=== PATIENT | male | born 1970 | race American Indian/Alaskan Native ===

== ENCOUNTER 2017-11-13 08:07 | Emergency (ER) | payer MEDICAID ==
[2017-11-13] MEDS ORDERED: D50W (25GM) Syringe IV ONE ×2 (08:17→09:39)
[2017-11-13 09:02] LABS: Basophils # (Auto) 0.1 K/mm3 (0.0-0.1); Basophils % (Auto) 0.7 % (0.0-1.8); Eosinophils % (Auto) 0.3 % (0.0-4.3); Hematocrit 38.6 % (35.5-45.6); Hemoglobin 12.7 gm/dl (11.8-15.2); Lymphocytes % (Auto) 8.3 % (13.4-35.0); Mean Corpuscular HGB Conc 33 % (32-34); Mean Corpuscular Hemoglobin 29 pg (28-32); Mean Corpuscular Volume 90 fl (84-94); Monocytes # (Auto) 0.6 K/mm3 (0.0-0.8); Monocytes % (Auto) 5.2 % (0.0-7.3); Platelet Count 206 K/mm3 (140-440); Red Blood Count 4.31 M/mm3 (3.65-5.03); Red Cell Distribution Width 14.1 % (13.2-15.2)
[2017-11-13 09:14] LABS: Calcium 8.5 mg/dL (8.4-10.2)
--- NOTE | 2017-11-13 12:18 | Emergency Department Report ---
ED General Adult HPI - General Chief complaint: Hypoglycemia Stated complaint: UNRESPONSIVE/DIABETIC Time Seen by Provider: 11/13/17 08:23 Source: EMS Mode of arrival: Stretcher Limitations: Altered Mental Status - History of Present Illness Initial comments: Patient is a 47-year-old male who is presenting status post hypoglycemic episode. Patient is a insulin-dependent diabetic states he took his insulin last night before going to bed and had cooked but did not eat. Patient was checked on him this morning by his son who found him unresponsive. Accu-Chek per EMS read low. Patient is unable to give any additional history at this time. Severity scale (0 -10): 0 - Related Data Allergies Allergy/AdvReac Type Severity Reaction Status Date / Time No Known Allergies Allergy Verified 11/13/17 08:22 ED Review of Systems ROS: Stated complaint: UNRESPONSIVE/DIABETIC Other details as noted in HPI Comment: Unobtainable due to pts medical conditions ED Past Medical Hx - Past Medical History Previous Medical History?: Yes Hx Diabetes: Yes - Social History Smoking Status: Current Every Day Smoker Substance Use Type: None ED Physical Exam - General Limitations: Altered Mental Status General appearance: lethargic, other (nonverbal but does have his eyes open) - Head Head exam: Present: atraumatic, normocephalic - Eye Eye exam: Present: normal appearance - ENT ENT exam: Present: mucous membranes moist - Neck Neck exam: Present: normal inspection - Respiratory Respiratory exam: Present: normal lung sounds bilaterally. Absent: respiratory distress, wheezes, rales, rhonchi, stridor - Cardiovascular Cardiovascular Exam: Present: regular rate, normal rhythm. Absent: systolic murmur, diastolic murmur, rubs, gallop - GI/Abdominal GI/Abdominal exam: Present: soft, normal bowel sounds. Absent: distended, tenderness, guarding, rebound - Rectal Rectal exam: Present: deferred - Extremities Exam Extremities exam: Present: normal inspection - Back Exam Back exam: Present: normal inspection - Neurological Exam Neurological exam: Present: alert - Psychiatric Psychiatric exam: Present: normal affect, normal mood - Skin Skin exam: Present: warm, dry, intact, normal color. Absent: rash ED Course Vital Signs 11/13/17 11/13/17 11/13/17 08:13 08:17 08:23 Temperature 97.7 F Pulse Rate 66 69 76 Respiratory 17 20 Rate Blood Pressure Blood Pressure 165/100 [Left] O2 Sat by Pulse 100 100 100 Oximetry 11/13/17 11/13/17 11/13/17 08:24 08:31 09:00 Temperature Pulse Rate 64 59 L Respiratory 20 14 13 Rate Blood Pressure 145/89 145/88 Blood Pressure [Left] O2 Sat by Pulse 99 100 Oximetry 11/13/17 11/13/17 11/13/17 09:31 10:01 10:30 Temperature Pulse Rate 65 67 70 Respiratory 15 14 15 Rate Blood Pressure 149/78 125/74 124/74 Blood Pressure [Left] O2 Sat by Pulse 100 99 99 Oximetry 11/13/17 11/13/17 13:15 13:25 Temperature 98.5 F Pulse Rate 69 Respiratory 16 Rate Blood Pressure 159/95 Blood Pressure [Left] O2 Sat by Pulse 100 Oximetry ED Medical Decision Making - Lab Data Result diagrams: 11/13/17 08:43 11/13/17 08:43 - Medical Decision Making Accu-Chek was low here in the emergency Department line was established here by nursing staff patient was given D50 and did return back to his baseline. The patient was given something to eat and his blood sugar was monitored several more times and emergency Department be discharged home. Critical care attestation.: If time is entered above; I have spent that time in minutes in the direct care of this critically ill patient, excluding procedure time. ED Disposition Clinical Impression: Hyperglycemia Disposition: DC-01 TO HOME OR SELFCARE Is pt being admited?: No Does the pt Need Aspirin: No Condition: Fair Instructions: Diabetic Hypoglycemia (ED) Referrals: JIN LECHUGA III, PRINCIPAL PROCESS ENGINEER-BC [Primary Care Provider] - 3-5 Days
[2017-11-13 12:47] LABS: Bilirubin,Urine NEG (Negative); Blood,Urine MOD (Negative); Color,Urine Yellow (Yellow); Nitrite,Urine NEG (Negative); Urobilinogen,Urine < 2.0 mg/dL (<2.0); WBC,Urine < 1.0 /HPF (0.0-6.0)
[2017-11-13 13:25] VITALS: BP 159/95
== END 2017-11-13 13:33 | disposition home or self-care (01) ==
LOC: ED 08:07
DX: E11.65 Type 2 diabetes mellitus with hyperglycemia (principal); F17.200 Nicotine dependence, unspecified, uncomplicated
CPT/HCPCS: 36415; 80048; 81001; 82962; 85025; 93005; 93010; 96374

== ENCOUNTER 2017-11-14 13:50 | Emergency (ER) | payer MEDICAID ==
[2017-11-14 16:02] VITALS: BP 142/82
== END 2017-11-14 16:05 | disposition left against medical advice (07) ==
LOC: ED 13:50
DX: Z53.21 Procedure and treatment not carried out due to patient leaving prior to being seen by health care provider (principal)
CPT/HCPCS: 82962

== ENCOUNTER 2018-05-19 05:01 | Emergency (ER) | payer MEDICAID ==
[2018-05-19 05:43] VITALS: BP 127/77
[2018-05-19 06:06] LABS: Basophils # (Auto) 0.1 K/mm3 (0.0-0.1); Eosinophils # (Auto) 0.1 K/mm3 (0.0-0.4); Eosinophils % (Auto) 0.9 % (0.0-4.3); Hematocrit 35.6 % (35.5-45.6); Hemoglobin 11.8 gm/dl (11.8-15.2); Lymphocytes % (Auto) 19.9 % (13.4-35.0); Mean Corpuscular HGB Conc 33 % (32-34); Mean Corpuscular Hemoglobin 30 pg (28-32); Mean Corpuscular Volume 89 fl (84-94); Monocytes # (Auto) 0.7 K/mm3 (0.0-0.8); Monocytes % (Auto) 6.7 % (0.0-7.3); Platelet Count 277 K/mm3 (140-440); Red Blood Count 3.98 M/mm3 (3.65-5.03); Red Cell Distribution Width 13.8 % (13.2-15.2)
[2018-05-19 06:23] LABS: Calcium 8.6 mg/dL (8.4-10.2)
[2018-05-19] MEDS ORDERED: NACL 0.9% 1000 ML 1,000 ML IV ONE (06:29)
--- NOTE | 2018-05-19 06:30 | Emergency Department Report ---
ED General Adult HPI - General Chief complaint: Hypoglycemia Stated complaint: LOW BLOOD GLUCOSE Time Seen by Provider: 05/19/18 06:05 Source: patient, EMS Mode of arrival: Stretcher Limitations: No Limitations - History of Present Illness Initial comments: Patient is a 47-year-old male presents to emergency room with complaints of hypoglycemia. Patient states that his spouse woke him up due to him shaking while sleeping. Patient stated he was diaphoretic. Patient states his blood sugar with EMS was 43. Patient states that he did not eat after taking his evening injection of insulin. Patient denies chest pain shortness of breath. Patient denies abdominal pain. Patient denies all other physical complaints. MD Complaint: hypoglycemia -: Sudden Consistency: now resolved Improves with: eating Worsens with: medication Associated Symptoms: confusion, diaphoresis. denies: chest pain, cough, fever/ chills, headaches, loss of appetite, nausea/vomiting, rash, seizure, shortness of breath, syncope Treatments Prior to Arrival: other (d50) - Related Data Home Medications Medication Instructions Recorded Confirmed Last Taken Lisinopril 10 mg PO DAILY 05/19/18 05/19/18 Unknown NovoLOG 100 UNITS/ML VIAL units SQ AC PRN 05/19/18 Unknown amLODIPine 10 units SQ DAILY 05/19/18 05/19/18 Unknown Allergies Allergy/AdvReac Type Severity Reaction Status Date / Time No Known Allergies Allergy Verified 11/13/17 08:22 ED Review of Systems ROS: Stated complaint: LOW BLOOD GLUCOSE Other details as noted in HPI Constitutional: denies: chills, fever Eyes: denies: eye pain, eye discharge, vision change ENT: denies: ear pain, throat pain Respiratory: denies: cough, shortness of breath, wheezing Cardiovascular: denies: chest pain, palpitations Endocrine: no symptoms reported Gastrointestinal: denies: abdominal pain, nausea, diarrhea Genitourinary: denies: urgency, dysuria Musculoskeletal: denies: back pain, joint swelling, arthralgia Skin: denies: rash, lesions Neurological: denies: headache, weakness, paresthesias Psychiatric: denies: anxiety, depression Hematological/Lymphatic: denies: easy bleeding, easy bruising ED Past Medical Hx - Past Medical History Previous Medical History?: Yes Hx Hypertension: Yes Hx Diabetes: Yes Hx Renal Disease: Yes (per patient baseline creatinine is 2.8-3.2) - Surgical History Past Surgical History?: No - Family History Family history: hypertension - Social History Smoking Status: Never Smoker Substance Use Type: None - Medications Home Medications: Home Medications Medication Instructions Recorded Confirmed Last Taken Type Lisinopril 10 mg PO DAILY 05/19/18 05/19/18 Unknown History NovoLOG 100 UNITS/ML VIAL units SQ AC PRN 05/19/18 Unknown History amLODIPine 10 units SQ DAILY 05/19/18 05/19/18 Unknown History ED Physical Exam - General Limitations: No Limitations General appearance: alert, in no apparent distress - Head Head exam: Present: atraumatic, normocephalic - Eye Eye exam: Present: normal appearance - ENT ENT exam: Present: mucous membranes moist - Neck Neck exam: Present: normal inspection - Respiratory Respiratory exam: Present: normal lung sounds bilaterally. Absent: respiratory distress - Cardiovascular Cardiovascular Exam: Present: regular rate, normal rhythm. Absent: systolic murmur, diastolic murmur, rubs, gallop - GI/Abdominal GI/Abdominal exam: Present: soft, normal bowel sounds. Absent: distended, tenderness, guarding, rebound - Rectal Rectal exam: Present: deferred - Extremities Exam Extremities exam: Present: normal inspection - Back Exam Back exam: Present: normal inspection, full ROM - Neurological Exam Neurological exam: Present: alert, oriented X3 - Psychiatric Psychiatric exam: Present: normal affect, normal mood - Skin Skin exam: Present: warm, dry, intact, normal color. Absent: rash ED Course Vital Signs 05/19/18 05/19/18 05:37 07:17 Temperature 98.2 F Pulse Rate 68 Respiratory 16 16 Rate Blood Pressure 127/77 O2 Sat by Pulse 100 100 Oximetry - Reevaluation(s) Reevaluation #1: Patient appears to be stable. Patient states he feels well. Discussed kidney function with patient. Patient states he is normally has an elevated creatinine of around 3. Patient states he is already seeing a hat finisher. We 'll recheck the patient's blood sugar and it normal will discharge patient home with strict ER instructions and follow-up instructions. Patient instructed G regularly. Patient instructed to continue all his medications and follow up with his primary care. 05/19/18 06:33 Reevaluation #2: Stressed all results with patient. Repeat glucose 297. Patient stable for discharge 05/19/18 07:48 ED Medical Decision Making - Lab Data Result diagrams: 05/19/18 05:54 05/19/18 05:54 - Medical Decision Making Patient is a 47-year-old male presents to [facility] with hypoglycemia dysemia secondary to missing his meals after injecting insulin. Patient is stable for discharge. Patient given all discharge instructions. Patient given strict return to ER instructions. Patient encouraged to eat small regular meals and continue all vacations as directed. Patient encouraged to follow up with primary care, keg washer, and hat finisher as soon as possible - Differential Diagnosis hypoglycemia, missed meal, insufficient caloric intake for insulin dose. Critical care attestation.: If time is entered above; I have spent that time in minutes in the direct care of this critically ill patient, excluding procedure time. ED Disposition Clinical Impression: Hypoglycemia associated with type 2 diabetes mellitus Chronic kidney disease (CKD) Qualifiers: Chronic kidney disease stage: unspecified stage Qualified Code(s): N18.9 - Chronic kidney disease, unspecified Disposition: - TO HOME OR SELFCARE Is pt being admited?: No Does the pt Need Aspirin: No Condition: Stable Instructions: Diabetes Mellitus Type 2 in Adults (ED) Additional Instructions: Patient to follow up with primary care in 3-5 days. Patient to follow up with keg washer and hat finisher within 2-4 days. Patient to return to ER if condition worsens. Patient to increase water. Patient to take all prescription medications as previously prescribed. Referrals: PRIMARY CARE, [Primary Care Provider] - 3-5 Days Time of Disposition: 07:49
[2018-05-19] MEDS ORDERED: NACL 0.9% 1000 ML 1,000 ML ONE (07:22)
== END 2018-05-19 09:00 | disposition home or self-care (01) ==
LOC: ED 05:01
DX: E11.649 Type 2 diabetes mellitus with hypoglycemia without coma (principal); E11.22 Type 2 diabetes mellitus with diabetic chronic kidney disease; I12.9 Hypertensive chronic kidney disease with stage 1 through stage 4 chronic kidney disease, or unspecified chronic kidney disease; N18.9 Chronic kidney disease, unspecified
CPT/HCPCS: 36415; 80048; 82962; 85025; 96360; 99284; J7030

== ENCOUNTER 2018-11-19 03:10 | Emergency (ER) | payer MEDICAID ==
[2018-11-19] MEDS ORDERED: D50W (25GM) Syringe IV ONE ×2 (03:16→05:20)
[2018-11-19] MEDS ORDERED: D50W (25GM) Vial IV ONE ×2 (03:30→03:50)
--- NOTE | 2018-11-19 03:51 | Emergency Department Report ---
ED General Adult HPI - General Chief complaint: Hypoglycemia Stated complaint: LOW SUGAR Time Seen by Provider: 11/19/18 03:27 Source: EMS Mode of arrival: Stretcher Limitations: Altered Mental Status - History of Present Illness Initial comments: Patient is a 48-year-old [place] male who has diabetes and is insulin- dependent, presented with hypoglycemia. Patient was noted to be altered at home. Patient states he took his insulin but he didn't eat very much for his last meal. Patient states is just very cold at this time. Patient had just received D50 at the time of our interview. Patient denies any nausea vomiting diarrhea headache fevers or chills. - Related Data Home Medications Medication Instructions Recorded Confirmed Last Taken Lisinopril 10 mg PO DAILY 05/19/18 05/19/18 Unknown NovoLOG 100 UNITS/ML VIAL units SQ AC PRN 05/19/18 Unknown amLODIPine 10 units SQ DAILY 05/19/18 05/19/18 Unknown Allergies Allergy/AdvReac Type Severity Reaction Status Date / Time No Known Allergies Allergy Verified 11/13/17 08:22 ED Review of Systems ROS: Stated complaint: LOW SUGAR Other details as noted in HPI Comment: All other systems reviewed and negative ED Past Medical Hx - Past Medical History Previous Medical History?: Yes Hx Hypertension: Yes Hx Diabetes: Yes Hx Renal Disease: Yes (per patient baseline creatinine is 2.8-3.2) - Surgical History Past Surgical History?: Yes - Social History Smoking Status: Never Smoker Substance Use Type: None - Medications Home Medications: Home Medications Medication Instructions Recorded Confirmed Last Taken Type Lisinopril 10 mg PO DAILY 05/19/18 05/19/18 Unknown History NovoLOG 100 UNITS/ML VIAL units SQ AC PRN 05/19/18 Unknown History amLODIPine 10 units SQ DAILY 05/19/18 05/19/18 Unknown History ED Physical Exam - General Limitations: Altered Mental Status General appearance: alert, in no apparent distress - Head Head exam: Present: atraumatic, normocephalic - Eye Eye exam: Present: normal appearance - ENT ENT exam: Present: mucous membranes moist - Neck Neck exam: Present: normal inspection - Respiratory Respiratory exam: Present: normal lung sounds bilaterally. Absent: respiratory distress, wheezes, rales, rhonchi - Cardiovascular Cardiovascular Exam: Present: regular rate, normal rhythm, normal heart sounds. Absent: systolic murmur, diastolic murmur, rubs, gallop - GI/Abdominal GI/Abdominal exam: Present: soft, normal bowel sounds. Absent: distended, ten derness, guarding, rebound - Rectal Rectal exam: Present: deferred - Extremities Exam Extremities exam: Present: normal inspection - Back Exam Back exam: Present: normal inspection - Neurological Exam Neurological exam: Present: alert, oriented X3 - Psychiatric Psychiatric exam: Present: normal affect, normal mood - Skin Skin exam: Present: warm, dry, intact, normal color. Absent: rash ED Course Vital Signs 11/19/18 11/19/18 11/19/18 03:24 03:30 04:00 Temperature 97.7 F Pulse Rate 103 H 77 Respiratory 18 18 13 Rate Blood Pressure 161/101 174/109 O2 Sat by Pulse 100 100 99 Oximetry 11/19/18 05:00 Temperature Pulse Rate 69 Respiratory 13 Rate Blood Pressure 148/85 O2 Sat by Pulse 100 Oximetry ED Medical Decision Making - Lab Data Result diagrams: 11/19/18 03:37 Lab Results 11/19/18 11/19/18 11/19/18 Range/Units 03:23 03:37 05:11 WBC 7.5 (4.5-11.0) K/mm3 RBC 3.90 (3.65-5.03) M/mm3 Hgb 11.5 L (11.8-15.2) gm/dl Hct 35.0 L (35.5-45.6) % MCV 90 (84-94) fl MCH 30 (28-32) pg MCHC 33 (32-34) % RDW 15.0 (13.2-15.2) % Plt Count 228 (140-440) K/mm3 Lymph % (Auto) 11.4 L (13.4-35.0) % [place] % (Auto) 4.7 (0.0-7.3) % Eos % (Auto) 0.5 (0.0-4.3) % Baso % (Auto) 1.1 (0.0-1.8) % Lymph # 0.9 L (1.2-5.4) K/mm3 [place] # 0.3 (0.0-0.8) K/mm3 Eos # 0.0 (0.0-0.4) K/mm3 Baso # 0.1 (0.0-0.1) K/mm3 Seg Neutrophils % 82.3 H (40.0-70.0) % Seg Neutrophils # 6.1 (1.8-7.7) K/mm3 POC Glucose 210 H 252 H (70-105) - Medical Decision Making Patient was monitored and his glucose level and did not drop again. Patient be discharged home. Critical care attestation.: If time is entered above; I have spent that time in minutes in the direct care of this critically ill patient, excluding procedure time. ED Disposition Clinical Impression: Hypoglycemia Insulin adverse reaction Qualifiers: Encounter type: initial encounter Qualified Code(s): T38.3X5A - Adverse effect of insulin and oral hypoglycemic [antidiabetic] drugs, initial encounter Disposition: DC-01 TO HOME OR SELFCARE Is pt being admited?: No Does the pt Need Aspirin: No Condition: Stable Instructions: Diabetic Hypoglycemia (ED) Time of Disposition: 05:31
[2018-11-19 04:05] LABS: Basophils # (Auto) 0.1 K/mm3 (0.0-0.1); Basophils % (Auto) 1.1 % (0.0-1.8); Eosinophils % (Auto) 0.5 % (0.0-4.3); Hemoglobin 11.5 gm/dl (11.8-15.2); Lymphocytes # (Auto) 0.9 K/mm3 (1.2-5.4); Lymphocytes % (Auto) 11.4 % (13.4-35.0); Mean Corpuscular HGB Conc 33 % (32-34); Mean Corpuscular Volume 90 fl (84-94); Monocytes # (Auto) 0.3 K/mm3 (0.0-0.8); Monocytes % (Auto) 4.7 % (0.0-7.3); Platelet Count 228 K/mm3 (140-440)
[2018-11-19 06:10] VITALS: BP 166/99
[2018-11-19 06:26] LABS: Calcium 8.6 mg/dL (8.4-10.2)
== END 2018-11-19 06:14 | disposition home or self-care (01) ==
LOC: ED 03:10
DX: E11.649 Type 2 diabetes mellitus with hypoglycemia without coma (principal); T38.3X5A Adverse effect of insulin and oral hypoglycemic [antidiabetic] drugs, initial encounter; I10 Essential (primary) hypertension; Z79.4 Long term (current) use of insulin; X58.XXXA Exposure to other specified factors, initial encounter; Y93.89 Activity, other specified; Y92.89 Other specified places as the place of occurrence of the external cause; Y99.8 Other external cause status
CPT/HCPCS: 36415; 80048; 82962; 85025; 96374

== ENCOUNTER 2019-02-12 23:56 | Inpatient (IN) | payer MEDICAID ==
--- NOTE | 2019-02-13 00:34 | Emergency Department Report ---
ED General Adult HPI - General Chief complaint: Hypoglycemia Stated complaint: HYPOGLYCEMIA Time Seen by Provider: 02/13/19 00:10 Source: patient, EMS Mode of arrival: Stretcher Limitations: No Limitations - History of Present Illness Initial comments: 48-year-old male with a history of insulin-dependent diabetes, hypertension, and chronic renal insufficiency presents to the hospital with complaints of hypoglycemia. Patient does not think he ate enough today and he has had a more physical activity than usual because he was participating in a zoroastrianism-related activity at a local park. Patient typically takes Lantus 20 units twice a day and regular insulin sliding scale of 2 units as needed persistent hyperglycemia. Patient states around 4:30 PM his glucose is 318 so he took 1 unit of regular insulin. They then walked to the park. At 7 PM patient took his scheduled Lantus and by 8p his sugar was in the 40s. Patient did eat very little today and ate additional food after a hypoglycemic reading however, upon recheck glucose dropped even further to 26. EMS gave D10 in route and glucose improved to 104. Patient medical record reviewed and patient has been here several times for hypoglycemic episodes. Patient denies current infectious symptoms, fever, cough, or dysuria. He is pain free. Skate Maker: Dr Rice - Related Data Home Medications Medication Instructions Recorded Confirmed Last Taken Lisinopril 10 mg PO DAILY 05/19/18 05/19/18 Unknown NovoLOG 100 UNITS/ML VIAL units SQ AC PRN 05/19/18 Unknown amLODIPine 10 units SQ DAILY 05/19/18 05/19/18 Unknown Allergies Allergy/AdvReac Type Severity Reaction Status Date / Time No Known Allergies Allergy Verified 11/13/17 08:22 ED Review of Systems ROS: Stated complaint: HYPOGLYCEMIA Other details as noted in HPI Comment: All other systems reviewed and negative ED Past Medical Hx - Past Medical History Previous Medical History?: Yes Hx Hypertension: Yes Hx Diabetes: Yes Hx Renal Disease: Yes (per patient baseline creatinine is 2.8-3.2) - Surgical History Past Surgical History?: No - Social History Smoking Status: Never Smoker Substance Use Type: None - Medications Home Medications: Home Medications Medication Instructions Recorded Confirmed Last Taken Type Lisinopril 10 mg PO DAILY 05/19/18 05/19/18 Unknown History NovoLOG 100 UNITS/ML VIAL units SQ AC PRN 05/19/18 Unknown History amLODIPine 10 units SQ DAILY 05/19/18 05/19/18 Unknown History ED Physical Exam - General Limitations: No Limitations - Other Other exam information: General: No limitations, patient is alert in no acute distress Head exam: Atraumatic, normocephalic Eyes exam: Normal appearance ENT: Moist mucous membrane Neck exam: Normal inspection, full range of motion, no meningismus nontender Respiratory exam: Clear to auscultation bilateral, no wheezes, rales, crackles Cardiovascular: Normal rate and rhythm, normal heart sounds Abdomen: Soft, nondistended, and nontender, with normal bowel sounds, no rebound, or guarding Extremity: Full range of motion normal inspection no deformity Back: Normal Inspection, full range of motion, no tenderness Neurologic: Alert, oriented x3, cranial nerves intact, no motor or sensory deficit Psychiatric: normal affect, normal mood Skin: Warm, dry, intact ED Course Vital Signs 02/13/19 02/13/19 02/13/19 02:51 04:25 04:34 Temperature 98.2 F Pulse Rate 72 73 73 Respiratory 16 20 Rate Blood Pressure 178/108 Blood Pressure 167/107 178/109 [Left] O2 Sat by Pulse 100 97 Oximetry - Consultations Consultation #1: 02/13/19 04:41 case d/w Dr Rice, he does state that he mentioned to pt with in the last 2 weeks that they need to start considering dialysis. Pt is adamant that he does not want dialysis. He requests that pt be admitted to the hospital for further tx ED Medical Decision Making - Lab Data Result diagrams: 02/13/19 00:20 02/13/19 00:20 Lab Results 02/13/19 02/13/19 02/13/19 Range/Units 00:19 00:20 00:20 WBC 8.4 (4.5-11.0) K/mm3 RBC 3.70 (3.65-5.03) M/mm3 Hgb 11.2 L (11.8-15.2) gm/dl Hct 33.6 L (35.5-45.6) % MCV 91 (84-94) fl MCH 30 (28-32) pg MCHC 33 (32-34) % RDW 14.2 (13.2-15.2) % Plt Count 230 (140-440) K/mm3 Lymph % (Auto) 30.1 (13.4-35.0) % [place] % (Auto) 9.5 H (0.0-7.3) % Eos % (Auto) 2.9 (0.0-4.3) % Baso % (Auto) Cane Feeder Lymph # 2.5 (1.2-5.4) K/mm3 [place] # 0.8 (0.0-0.8) K/mm3 Eos # 0.2 (0.0-0.4) K/mm3 Baso # 0.1 (0.0-0.1) K/mm3 Seg Neutrophils % 56.3 (40.0-70.0) % Seg Neutrophils # 4.7 (1.8-7.7) K/mm3 Sodium 140 (137-145) mmol/L Potassium 3.9 (3.6-5.0) mmol/L Chloride 106.5 (98-107) mmol/L Carbon Dioxide 20 L (22-30) mmol/L Anion Gap 17 mmol/L BUN 70 H (9-20) mg/dL Creatinine 5.7 H (0.8-1.5) mg/dL Estimated GFR 13 ml/min BUN/Creatinine Ratio 12 % Glucose 65 L (75-100) mg/dL POC Glucose 75 (70-105) Calcium 8.7 (8.4-10.2) mg/dL Urine Color (Yellow) Urine Turbidity (Clear) Urine pH (5.0-7.0) Ur Specific [place] (1.003-1.030) Urine Protein (Negative) mg/dL Urine Glucose (UA) (Negative) mg/dL Urine Ketones (Negative) mg/dL Urine Blood (Negative) Urine Nitrite (Negative) Urine Bilirubin (Negative) Urine Urobilinogen (<2.0) mg/dL Ur Leukocyte Esterase (Negative) Urine WBC (Auto) (0.0-6.0) /HPF Urine RBC (Auto) (0.0-6.0) /HPF U Epithel Cells (Auto) (0-13.0) /HPF Urine Mucus /HPF 02/13/19 02/13/19 02/13/19 Range/Units 00:35 03:12 04:32 WBC (4.5-11.0) K/mm3 RBC (3.65-5.03) M/mm3 Hgb (11.8-15.2) gm/dl Hct (35.5-45.6) % MCV (84-94) fl MCH (28-32) pg MCHC (32-34) % RDW (13.2-15.2) % Plt Count (140-440) K/mm3 Lymph % (Auto) (13.4-35.0) % [place] % (Auto) (0.0-7.3) % Eos % (Auto) (0.0-4.3) % Baso % (Auto) Lymph # (1.2-5.4) K/mm3 [place] # (0.0-0.8) K/mm3 Eos # (0.0-0.4) K/mm3 Baso # (0.0-0.1) K/mm3 Seg Neutrophils % (40.0-70.0) % Seg Neutrophils # (1.8-7.7) K/mm3 Sodium (137-145) mmol/L Potassium (3.6-5.0) mmol/L Chloride (98-107) mmol/L Carbon Dioxide (22-30) mmol/L Anion Gap mmol/L BUN (9-20) mg/dL Creatinine (0.8-1.5) mg/dL Estimated GFR ml/min BUN/Creatinine Ratio % Glucose (75-100) mg/dL POC Glucose 401 H 377 H (70-105) Calcium (8.4-10.2) mg/dL Urine Color Straw (Yellow) Urine Turbidity Clear (Clear) Urine pH 5.0 (5.0-7.0) Ur Specific [place] 1.010 (1.003-1.030) Urine Protein 100 mg/dl (Negative) mg/dL Urine Glucose (UA) 50 (Negative) mg/dL Urine Ketones Neg (Negative) mg/dL Urine Blood Mod (Negative) Urine Nitrite Neg (Negative) Urine Bilirubin Neg (Negative) Urine Urobilinogen < 2.0 (<2.0) mg/dL Ur Leukocyte Esterase Neg (Negative) Urine WBC (Auto) < 1.0 (0.0-6.0) /HPF Urine RBC (Auto) 3.0 (0.0-6.0) /HPF U Epithel Cells (Auto) < 1.0 (0-13.0) /HPF Urine Mucus Few /HPF - Medical Decision Making Patient has been a hospital ER for several hours while has been trying to normalize his glucose and values. Worsening kidney function could be secondary to dehydration given elevated BUN or could just be due to progressively worsening renal function. In the ED patient did initially receive something to eat and D5 half-normal was initiated. After receiving just over 500 mL of D5 half-normal his glucose increased to the 400s. Fluid was switched to normal saline. After 1 L of normal saline glucose dropped to the high 300s. Case is then discussed with Dr. jarvis regarding her worsening renal function. He states that he saw the patient 2 weeks ago recommended dialysis. Patient adamant that he does not want dialysis. Dr Rice recommends admission to the hospital for further treatment and evaluation. Pt also needs further stablization of his glucose and nephro eval. Clonidine given for htn - Differential Diagnosis fasting hypoglycemia, insulin reaction, infection Critical Care Time: No Critical care attestation.: If time is entered above; I have spent that time in minutes in the direct care of this critically ill patient, excluding procedure time. ED Disposition Clinical Impression: Hypoglycemia due to insulin, Acute on chronic renal failure, Uncontrolled hypertension Disposition: OP ADMIT IP TO THIS HOSP Is pt being admited?: Yes Condition: Stable Time of Disposition: 04:49 (Dr Yoder/hosp)
[2019-02-13 00:51] LABS: Basophils # (Auto) 0.1 K/mm3 (0.0-0.1); Eosinophils # (Auto) 0.2 K/mm3 (0.0-0.4); Eosinophils % (Auto) 2.9 % (0.0-4.3); Hematocrit 33.6 % (35.5-45.6); Hemoglobin 11.2 gm/dl (11.8-15.2); Lymphocytes # (Auto) 2.5 K/mm3 (1.2-5.4); Lymphocytes % (Auto) 30.1 % (13.4-35.0); Mean Corpuscular HGB Conc 33 % (32-34); Mean Corpuscular Volume 91 fl (84-94); Monocytes # (Auto) 0.8 K/mm3 (0.0-0.8); Monocytes % (Auto) 9.5 % (0.0-7.3); Platelet Count 230 K/mm3 (140-440); Red Cell Distribution Width 14.2 % (13.2-15.2)
[2019-02-13 00:53] LABS: Bilirubin,Urine NEG (Negative); Blood,Urine MOD (Negative); Color,Urine Straw (Yellow); Mucus,Urine FEW /HPF; Urobilinogen,Urine < 2.0 mg/dL (<2.0); WBC,Urine < 1.0 /HPF (0.0-6.0)
[2019-02-13 00:54] LABS: Calcium 8.7 mg/dL (8.4-10.2)
[2019-02-13] MEDS ORDERED: D5/0.45NS 1,000 ML IV SCH (02:00)
[2019-02-13] MEDS ORDERED: NACL 0.9% 1000 ML 1,000 ML IV ONE (03:23)
[2019-02-13] MEDS ORDERED: CATAPRES PO ONE (04:24)
[2019-02-13] MEDS ORDERED: ZOFRAN IV PRN (05:06)
[2019-02-13] MEDS ORDERED: AMBIEN PO PRN (05:06)
[2019-02-13] MEDS ORDERED: SODIUM CHLORIDE FLUSH SYRINGE 10 ML IV PRN (05:06)
[2019-02-13] MEDS ORDERED: TYLENOL PO PRN (05:06)
[2019-02-13] MEDS ORDERED: APRESOLINE IV PRN (05:12)
--- NOTE | 2019-02-13 05:22 | History and Physical Report ---
History of Present Illness Date of examination: 02/13/19 Chief complaint: Hypoglycemia History of present illness: 48-year-old male with a history of insulin-dependent diabetes, hypertension, and chronic renal insufficiency presents to the hospital with complaints of hypoglycemia. Patient does not think he ate enough today and he has had a more physical activity than usual because he was participating in a advent-related activity at a local park. Patient typically takes Lantus 20 units twice a day and regular insulin sliding scale of 2 units as needed persistent hyperglycemia. Patient states around 4:30 PM his glucose is 318 so he took 1 unit of regular insulin. They then walked to the park. At 7 PM patient took his scheduled Lantus and by 8p his sugar was in the 40s. Patient did eat very little today and ate additional food after a hypoglycemic reading however, upon recheck glucose dropped even further to 26. EMS gave D10 in route and glucose improved to 104. Patient medical record reviewed and patient has been here several times for hypoglycemic episodes. Patient denies current infectious symptoms, fever, cough, or dysuria. He is pain free. Tube Inspector: Dr Rice Previous Medical History?: Yes Hx Hypertension: Yes Hx Diabetes: Yes Hx Renal Disease: Yes (per patient baseline creatinine is 2.8-3.2) - Surgical History Past Surgical History?: No - Social History Smoking Status: Never Smoker Substance Use Type: None Medications and Allergies Allergies Allergy/AdvReac Type Severity Reaction Status Date / Time No Known Allergies Allergy Verified 11/13/17 08:22 Home Medications Medication Instructions Recorded Confirmed Last Taken Type Lisinopril 10 mg PO DAILY 05/19/18 05/19/18 Unknown History NovoLOG 100 UNITS/ML VIAL units SQ AC PRN 05/19/18 Unknown History amLODIPine 10 units SQ DAILY 05/19/18 05/19/18 Unknown History Active Meds: Active Medications Acetaminophen (Tylenol) 650 mg PO Q4H PRN PRN Reason: Pain MILD(1-3)/Fever >100.5/RO Dextrose (D50w (25gm) Syringe) 50 ml IV PRN PRN PRN Reason: Hypoglycemia Heparin Sodium (Porcine) (Heparin) 5,000 unit SUB-Q Q8HR MANGO Hydralazine HCl (Apresoline) 10 mg IV Q4HR PRN PRN Reason: Hypertension Dextrose/Sodium Chloride (D5/0.45ns) 1,000 mls @ 999 mls/hr IV DIRECT MANGO Last Admin: 02/13/19 02:04 Dose: 999 mls/hr Documented by: Sodium Chloride (Nacl 0.45% 1000 Ml) 1,000 mls @ 150 mls/hr IV DIRECT MANGO Insulin Glargine (Lantus) 15 units SUB-Q QHS MANGO Insulin Human Regular (Humulin R) 0 units SUB-Q ACHS MANGO; Protocol Miscellaneous Medication (Amlodipine) 10 units SQ DAILY MANGO Miscellaneous Medication (Lisinopril) 10 mg PO DAILY MANGO Ondansetron HCl (Zofran) 4 mg IV Q8H PRN PRN Reason: Nausea And Vomiting Sodium Chloride (Sodium Chloride Flush Syringe 10 Ml) 10 ml IV BID MANGO Sodium Chloride (Sodium Chloride Flush Syringe 10 Ml) 10 ml IV PRN PRN PRN Reason: LINE FLUSH Zolpidem Tartrate (Ambien) 5 mg PO QHS PRN PRN Reason: Insomnia Review of Systems All systems: negative (except as mentioned in HPI) Exam - Physical Exam Narrative exam: General: the patient is awake alert oriented to time place and person. no evide nce of acute distress HEENT: Head is atraumatic normocephalic,. Pupils equal round reactive to light and accommodation, extraocular movements intact. Oral mucosa moist. Oropharynx clear. No pharyngeal erythema or tonsillar exudate. Neck: Supple no JVD no thyromegaly or lymphadenopathy. Heart: Regular rate and rhythm no murmurs or gallops. S1 and S2 normal. PMI not displaced. Lungs: Clear to auscultation bilaterally. No rales rhonchi wheezing. Nonlabored breathing. Normal chest wall expansion. Abdomen: Soft, nondistended, and nontender. Normoactive bowel sounds. No hepatosplenomegaly. No abdominal masses or bruit appreciated. Extremities: No cyanosis/clubbing/ edema. Musculoskeletal: Normal range of movement all joints. No obvious deformity or tenderness to palpation. Normal muscle tone. Back: Normal alignment. No step-off. No midline or paraspinal tenderness. No CVA tenderness. Neurological: Grossly intact and nonfocal. No cerebellar signs. Cranial nerves II-12 grossly intact. Strength 5 out of 5 all 4 extremities. Sensations grossly intact. Skin: Warm and dry no rashes or bruises. Psychiatric: Normal mood. Appropriate affect and good insight and judgment. Vascular system: No lymphadenopathy. Distal pulses 2+ bilaterally. - Constitutional Vitals: Temp Pulse Resp BP Pulse Ox 98.2 F 73 20 178/108 97 02/13/19 04:25 02/13/19 04:34 02/13/19 04:25 02/13/19 04:34 02/13/19 04:25 Results - Labs CBC & Chem 7: 02/13/19 00:20 02/13/19 00:20 Labs: Laboratory Last Values WBC 8.4 K/mm3 (4.5-11.0) 02/13/19 00:20 RBC 3.70 M/mm3 (3.65-5.03) 02/13/19 00:20 Hgb 11.2 gm/dl (11.8-15.2) L 02/13/19 00:20 Hct 33.6 % (35.5-45.6) L 02/13/19 00:20 MCV 91 fl (84-94) 02/13/19 00:20 MCH 30 pg (28-32) 02/13/19 00:20 MCHC 33 % (32-34) 02/13/19 00:20 RDW 14.2 % (13.2-15.2) 02/13/19 00:20 Plt Count 230 K/mm3 (140-440) 02/13/19 00:20 Lymph % (Auto) 30.1 % (13.4-35.0) 02/13/19 00:20 [place] % (Auto) 9.5 % (0.0-7.3) H 02/13/19 00:20 Eos % (Auto) 2.9 % (0.0-4.3) 02/13/19 00:20 Baso % (Auto) Implementation Engineer 02/13/19 00:20 Lymph # 2.5 K/mm3 (1.2-5.4) 02/13/19 00:20 [place] # 0.8 K/mm3 (0.0-0.8) 02/13/19 00:20 Eos # 0.2 K/mm3 (0.0-0.4) 02/13/19 00:20 Baso # 0.1 K/mm3 (0.0-0.1) 02/13/19 00:20 Seg Neutrophils % 56.3 % (40.0-70.0) 02/13/19 00:20 Seg Neutrophils # 4.7 K/mm3 (1.8-7.7) 02/13/19 00:20 Sodium 140 mmol/L (137-145) 02/13/19 00:20 Potassium 3.9 mmol/L (3.6-5.0) 02/13/19 00:20 Chloride 106.5 mmol/L (98-107) 02/13/19 00:20 Carbon Dioxide 20 mmol/L (22-30) L 02/13/19 00:20 Anion Gap 17 mmol/L 02/13/19 00:20 BUN 70 mg/dL (9-20) H 02/13/19 00:20 Creatinine 5.7 mg/dL (0.8-1.5) H 02/13/19 00:20 Estimated GFR 13 ml/min 02/13/19 00:20 BUN/Creatinine Ratio 12 % 02/13/19 00:20 Glucose 65 mg/dL (75-100) L 02/13/19 00:20 POC Glucose 377 (70-105) H 02/13/19 04:32 Calcium 8.7 mg/dL (8.4-10.2) 02/13/19 00:20 Urine Color Straw (Yellow) 02/13/19 00:35 Urine Turbidity Clear (Clear) 02/13/19 00:35 Urine pH 5.0 (5.0-7.0) 02/13/19 00:35 Ur Specific [place] 1.010 (1.003-1.030) 02/13/19 00:35 Urine Protein 100 mg/dl mg/dL (Negative) 02/13/19 00:35 Urine Glucose (UA) 50 mg/dL (Negative) 02/13/19 00:35 Urine Ketones Neg mg/dL (Negative) 02/13/19 00:35 Urine Blood Mod (Negative) 02/13/19 00:35 Urine Nitrite Neg (Negative) 02/13/19 00:35 Urine Bilirubin Neg (Negative) 02/13/19 00:35 Urine Urobilinogen < 2.0 mg/dL (<2.0) 02/13/19 00:35 Ur Leukocyte Esterase Neg (Negative) 02/13/19 00:35 Urine WBC (Auto) < 1.0 /HPF (0.0-6.0) 02/13/19 00:35 Urine RBC (Auto) 3.0 /HPF (0.0-6.0) 02/13/19 00:35 U Epithel Cells (Auto) < 1.0 /HPF (0-13.0) 02/13/19 00:35 Urine Mucus Few /HPF 02/13/19 00:35 Assessment and Plan Assessment and plan: Assessment and plan: * Hypoglycemia in diabetes mellitus type 1 * Diabetes mellitus-I * Hypertension malignant uncontrolled * Acute on chronic renal failure * Anemia likely anemia secondary to chronic kidney disease Plan: Admit patient to medical floor with telemetry Nephrology Dr. Rice was called by the ER physician and patient recommended to be admitted Patient adamantly refusing dialysis Blood sugars are elevated to greater than 300, we will resume patient's Lantus b ut at lower dose. Patient takes Lantus 20 units twice a day at home We will start patient on 15 units daily at bedtime, monitor blood sugars with Accu-Cheks every before meals and daily at bedtime and cover with sliding scale insulin We'll resume patient's home amlodipine with holding the lisinopril We will give when necessary IV hydralazine for optimal blood pressure control patient may also benefit from starting on a beta joanna Likely this is progression of his chronic kidney disease, but defer further evaluation and management to nephrology Monitor CBC and electrolytes Replace electrolytes when necessary as per protocol DVT and GI prophylaxis as ordered Monitor and follow the patient closely Advance Directives: Yes VTE prophylaxis?: Chemical, Mechanical Plan of care discussed with patient/family: Yes
[2019-02-13 05:56] LABS: Chol/HDL Ratio 2.15 %
[2019-02-13] MEDS: HEPARIN SUB-Q SCH ×3 (06:32→22:13)
[2019-02-13] MEDS: HumuLIN R SUB-Q SCH ×4 (08:17→22:14)
[2019-02-13] MEDS: NACL 0.45% 1000 ML 1,000 ML IV SCH ×3 (08:18→22:13)
--- NOTE | 2019-02-13 08:57 | Consultation ---
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 Patient was recently seen in our office and his blood sugar has been running low. Per patient his sugar was in the 40s last night and dropped to 26. EMS gave D10 in route and glucose improved to 104. Patient has been here several times for hypoglycemic episodes. Patient denies N, V, D, abd pain, dysuria, hematuria, fever, chills, cough, dizziness, cp, syncope or leg swelling. Creatinine 5.7 today. His renal function has been progressively declining in the setting of poorly controlled DM. Past History Past Medical History: anemia, diabetes, hypertension, hyperlipidemia, renal failure Medications and Allergies Allergies Allergy/AdvReac Type Severity Reaction Status Date / Time No Known Allergies Allergy Verified 11/13/17 08:22 Home Medications Medication Instructions Recorded Confirmed Last Taken Type Lisinopril 10 mg PO DAILY 05/19/18 05/19/18 Unknown History NovoLOG 100 UNITS/ML VIAL units SQ AC PRN 05/19/18 Unknown History amLODIPine 10 units SQ DAILY 05/19/18 05/19/18 Unknown History Active Meds: Active Medications Acetaminophen (Tylenol) 650 mg PO Q4H PRN PRN Reason: Pain MILD(1-3)/Fever >100.5/RO Amlodipine Besylate (Norvasc) 10 mg PO DAILY [facility] Dextrose (D50w (25gm) Syringe) 50 ml IV PRN PRN PRN Reason: Hypoglycemia Heparin Sodium (Porcine) (Heparin) 5,000 unit SUB-Q Q8HR MANGO Last Admin: 02/13/19 06:32 Dose: 5,000 unit Documented by: Hydralazine HCl (Apresoline) 10 mg IV Q4HR PRN PRN Reason: Hypertension Sodium Chloride (Nacl 0.45% 1000 Ml) 1,000 mls @ 150 mls/hr IV DIRECT [facility] Last Admin: 02/13/19 08:18 Dose: 150 mls/hr Documented by: Insulin Glargine (Lantus) 15 units SUB-Q QHS [facility] Insulin Human Regular (Humulin R) 0 units SUB-Q ACHS MANGO; Protocol Last Admin: 02/13/19 08:17 Dose: 8 units Documented by: Ondansetron HCl (Zofran) 4 mg IV Q8H PRN PRN Reason: Nausea And Vomiting Sodium Chloride (Sodium Chloride Flush Syringe 10 Ml) 10 ml IV BID MANGO Sodium Chloride (Sodium Chloride Flush Syringe 10 Ml) 10 ml IV PRN PRN PRN Reason: LINE FLUSH Zolpidem Tartrate (Ambien) 5 mg PO QHS PRN PRN Reason: Insomnia Review of Systems Constitutional: no weight loss, no weight gain, no fever, no chills, no anorexia Cardiovascular: high blood pressure, no chest pain, no orthopnea, no edema, no syncope, no lightheadedness, no shortness of breath, no dyspnea on exertion, no leg edema Respiratory: no cough, no shortness of breath Gastrointestinal: no abdominal pain, no nausea, no vomiting, no diarrhea Genitourinary Male: no dysuria, no hematuria Rectal: no bleeding Musculoskeletal: no limitation of motion, no gait dysfunction Integumentary: no rash, no redness, no sores Neurological: no paralysis, no weakness, no seizures, no syncope, no convulsions, no aphasia Exam - Vital Signs Vital signs: Vital Signs Pulse Resp BP Pulse Ox 72 16 167/107 100 02/13/19 02:51 02/13/19 02:51 02/13/19 02:51 02/13/19 02:51 - General Appearance General appearance: well-developed, well-nourished, appears stated age, other (not in distress) EENT: ATNC, PERRL, mucous membranes moist, hearing intact, vision intact Neck: Present: neck supple, trachea midline Respiratory: Clear to Ascultation Heart: regular, S1S2, no murmurs Gastrointestinal: Present: normoactive bowel sounds. Absent: tenderness, distended Integumentary: no rash, warm and dry Neurologic: no focal deficit, no asterixis, alert and oriented x3 Musculoskeletal: Present: other (no edema) Results - Lab Results 02/13/19 00:20 02/13/19 11:36 Most recent lab results Calcium 8.7 mg/dL (8.4-10.2) 02/13/19 00:20 Assessment and Plan 1. CKD stage 5: CKD has likely progressed to stage 5 now. CKD secondary to diabetic nephropathy. No uremic symptoms or signs at this time. Will order Urine studies, Antibodies and Renal US to complete the workup. Monitor renal function. Refused dialysis. Avoid nephrotoxic agents. Meds dosage based on GFR. 2. DM with recurrent hypoglycemia: Monitor blood sugar. 3. Hypertension. 4. Anemia. 5. Medical non-compliance: Compliance encouraged.
[2019-02-13] MEDS ORDERED: AMLODIPINE SQ SCH (10:00)
[2019-02-13] MEDS ORDERED: NON-FORMULARY (Lisinopril 10 MG) PO SCH (10:00)
[2019-02-13] MEDS: NORVASC PO SCH (11:01)
[2019-02-13] MEDS: SODIUM CHLORIDE FLUSH SYRINGE 10 ML IV SCH ×2 (11:02→22:15)
[2019-02-13] MEDS: D50W (25GM) Syringe IV PRN (11:22)
--- NOTE | 2019-02-13 15:36 | Event Note ---
Date: 02/13/19 patient seen and examined no new complaints, readjusted insulin to lower dose. Continue to monitor for recurrent hypoglycemia
[2019-02-13] MEDS ORDERED: LANTUS SUB-Q SCH ×3 (22:00)
[2019-02-14] MEDS: D50W (25GM) Syringe IV PRN ×2 (00:24→04:52)
[2019-02-14 05:21] LABS: Basophils # (Auto) 0.1 K/mm3 (0.0-0.1); Eosinophils # (Auto) 0.1 K/mm3 (0.0-0.4); Eosinophils % (Auto) 1.9 % (0.0-4.3); Hematocrit 32.9 % (35.5-45.6); Hemoglobin 11.3 gm/dl (11.8-15.2); Lymphocytes # (Auto) 1.1 K/mm3 (1.2-5.4); Lymphocytes % (Auto) 14.9 % (13.4-35.0); Mean Corpuscular HGB Conc 34 % (32-34); Mean Corpuscular Volume 89 fl (84-94); Monocytes # (Auto) 0.5 K/mm3 (0.0-0.8); Monocytes % (Auto) 6.5 % (0.0-7.3); Platelet Count 241 K/mm3 (140-440); Red Blood Count 3.71 M/mm3 (3.65-5.03)
[2019-02-14] MEDS: HEPARIN SUB-Q SCH ×2 (05:23→12:59)
[2019-02-14 05:46] LABS: Albumin 3.1 g/dL (3.9-5)
[2019-02-14] MEDS ORDERED: D5/0.45NS 1,000 ML IV SCH (06:00)
--- NOTE | 2019-02-14 07:46 | Progress Note ---
Assessment and Plan 1. CKD stage 5: CKD has likely progressed to stage 5 now. CKD secondary to diabetic nephropathy. No uremic symptoms or signs at this time. Urine studies, Antibodies and Renal US ordered. Monitor renal function. Avoid nephrotoxic agents. Meds dosage based on GFR. 2. DM with recurrent hypoglycemia: Monitor blood sugar. 3. Hypertension. 4. Anemia. 5. Medical non-compliance: Compliance encouraged. Patient has an appt with me next week. Subjective Date of service: 02/14/19 Interval history: Patient is doing ok. Objective - Vital Signs Vital signs: Vital Signs - 12hr 02/13/19 02/14/19 22:24 04:35 Temperature 97.8 F 97.9 F Pulse Rate 63 75 Respiratory 20 20 Rate Blood Pressure 162/95 129/79 O2 Sat by Pulse 98 98 Oximetry - General Appearance General appearance: well-developed, well-nourished, appears stated age, other (not in distress) EENT: ATNC, PERRL, mucous membranes moist, hearing intact, vision intact Neck: supple Respiratory: Present: Clear to Ascultation Cardiology: regular, S1S2, no murmurs Gastrointestinal: normoactive bowel sounds, no tenderness, no distended Integumentary: no rash, warm and dry Neurologic: no focal deficit, no asterixis, alert and oriented x3 Musculoskeletal: other (no edema) - Lab 02/14/19 04:51 02/14/19 04:51 Most recent lab results Calcium 8.0 mg/dL (8.4-10.2) L 02/14/19 04:51 Phosphorus 4.30 mg/dL (2.5-4.5) 02/14/19 04:51 Magnesium 1.70 mg/dL (1.7-2.3) 02/14/19 04:51 Medications & Allergies - Medications Allergies/Adverse Reactions: Allergies No Known Allergies Allergy (Verified 11/13/17 08:22) Home Medications: Home Medications Medication Instructions Recorded Confirmed Last Taken Type NovoLOG 100 UNITS/ML VIAL units SQ AC PRN 05/19/18 Unknown History amLODIPine 10 units SQ DAILY 05/19/18 05/19/18 Unknown History Insulin Glargine [Lantus VIAL] 12 units SUB-Q QHS #30 units 02/14/19 Unknown Rx Active Medications: Generic Name Dose Route Start Last Admin Trade Name Freq PRN Reason Stop Dose Admin Acetaminophen 650 mg 02/13/19 05:06 Tylenol PO Q4H PRN Pain MILD(1-3)/Fever >100.5/RO Amlodipine Besylate 10 mg 02/13/19 10:00 02/13/19 11:01 Norvasc PO 10 mg DAILY MANGO Administration Dextrose 50 ml 02/13/19 05:06 02/14/19 04:52 D50w (25gm) Syringe IV 50 ml PRN PRN Administration Hypoglycemia Heparin Sodium (Porcine) 5,000 unit 02/13/19 06:00 02/14/19 05:23 Heparin SUB-Q 5,000 unit Q8HR MANGO Administration Hydralazine HCl 10 mg 02/13/19 05:12 02/13/19 22:31 Apresoline IV 10 mg Q4HR PRN Administration Hypertension Insulin Glargine 10 units 02/14/19 07:37 Lantus SUB-Q QHS MANGO Insulin Human Regular 0 units 02/13/19 07:30 02/13/19 22:14 Humulin R SUB-Q 8 units ACHS MANGO Administration Protocol Ondansetron HCl 4 mg 02/13/19 05:06 Zofran IV Q8H PRN Nausea And Vomiting Sodium Chloride 10 ml 02/13/19 10:00 02/13/19 22:15 Sodium Chloride Flush Syringe 10 Ml IV 10 ml BID MANGO Administration Sodium Chloride 10 ml 02/13/19 05:06 Sodium Chloride Flush Syringe 10 Ml IV PRN PRN LINE FLUSH Zolpidem Tartrate 5 mg 02/13/19 05:06 Ambien PO QHS PRN Insomnia
[2019-02-14] MEDS: HumuLIN R SUB-Q SCH ×3 (08:40→17:02)
--- NOTE | 2019-02-14 09:22 | Discharge Summary ---
Providers - Providers Date of Admission: 02/13/19 05:06 Attending physician: SHAYLA FRANCIS MD 02/13/19 04:50 Consult to Physician [CONS] Urgent Comment: Dr. Dixon spoke with Dr. Stubbs @ [id number] Consulting Provider: EARLE STUBBS Physician Instructions: Reason For Exam: acute on chronic rf, hypoglycemia 02/13/19 05:10 Consult to Dietitian/Nutrition [CONS] Routine Physician Instructions: Reason For Exam: Reason for Consult: Diet education Primary care physician: 3D TECHNOLOGIST Hospitalization Reason for admission: hypoglycemia Condition: Stable Hospital course: 48-year-old male with a history of insulin-dependent diabetes, hypertension, and chronic renal insufficiency presents to the hospital with complaints of hypoglycemia. Patient does not think he ate enough today and he has had a more physical activity than usual because he was participating in a congregational-related activity at a local park. Patient typically takes Lantus 20 units twice a day and regular insulin sliding scale of 2 units as needed persistent hyperglycemia. Patient states around 4:30 PM his glucose is 318 so he took 1 unit of regular insulin. They then walked to the park. At 7 PM patient took his scheduled Lantus and by 8p his sugar was in the 40s. Patient did eat very little today and ate additional food after a hypoglycemic reading however, upon recheck glucose dropped even further to 26. EMS gave D10 in route and glucose improved to 104. Patient medical record reviewed and patient has been here several times for hypoglycemic episodes. Patient denies current infectious symptoms, fever, cough, or dysuria. He is pain free. Staff Educator: Dr Stubbs Patient is very dramatic and irate upset with his primary nephrology physician f or talking to him about dialysis. He states that he is not going to do not his body does not tell him he needs to do. He states that he is a firm believer in God and he'll rule out a diet and allow his body go to dialysis because nobody has gone to dialysis was elevated more than 10 years. He states that he his blood sugar had dropped to 48 and he only drank a little bit of fruit sponge normally he would drink a whole cup but refused to do this so that his blood sugar does not shoot up. He his crester has also advised him to cut down on his Lantus due to low blood sugar because this is a gaze with his primary care doctor told him he does not want to hear that. He was monitored with adjustment of his Lantus units. And this was advised to the patient's. 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 He verbalized understanding and I did discuss blood pressure management, also holding off his lisinopril patient verbalizes understanding also. I advised him the need to have a repeat creatinine level in 2-3 days. * Hypoglycemia in diabetes mellitus type 1 * Diabetes mellitus-I * Hypertension malignant uncontrolled * Acute on chronic renal failure * Anemia likely anemia secondary to chronic kidney disease Disposition: - TO HOME OR SELFCARE Time spent for discharge: 35 mins Core Measure Documentation - Palliative Care Palliative Care/ Comfort Measures: Not Applicable - Core Measures Any of the following diagnoses?: none Exam - Physical Exam Narrative exam: VITAL SIGNS: Reviewed. GENERAL: The patient appeared well nourished and normally developed, Vital signs as documented. HEAD: No signs of head trauma. EYES: Pupils are equal. Extraocular motions intact. EARS: Hearing grossly intact. MOUTH: Oropharynx is with missing dentition. NECK: No adenopathy, no JVD. CHEST: Chest with clear breath sounds bilaterally. No wheezes, rales, or rhonchi. CARDIAC: Regular rate and rhythm. S1 and S2, without murmurs, gallops, or rubs. VASCULAR: No Edema. Peripheral pulses normal and equal in all extremities. ABDOMEN: Soft, non tender and non distended. No rebound or guarding, and no masses palpated. Bowel Sounds normal. MUSCULOSKELETAL: Good range of motion of all major joints. Extremities without clubbing, cyanosis or edema. NEUROLOGIC EXAM: Alert and oriented x 3 No focal sensory or strength deficits. Speech normal. Follows commands. PSYCHIATRIC: Mood normal. SKIN: No rash or lesions. - Constitutional Vitals: Temp Pulse Resp BP Pulse Ox 97.9 F 75 20 129/79 98 02/14/19 04:35 02/14/19 04:35 02/14/19 04:35 02/14/19 04:35 02/14/19 04:35 Plan Activity: advance as tolerated, fall precautions Diet: diabetic, renal Special Instructions: record daily BP diary, record blood sugar diary Additional Instructions: Must have renal function test in 2-3 days with Primary doctor or Staff Educator. Follow with primary crester in 1 week Follow up with: PRIMARY MD KRISTY [Primary Care Provider] - 7 Days EARLE STUBBS MD [Staff Physician] - 7 Days Prescriptions: Insulin Glargine [Lantus VIAL] 12 units SUB-Q QHS #30 units
[2019-02-14] MEDS: NORVASC PO SCH (09:41)
[2019-02-14] MEDS: SODIUM CHLORIDE FLUSH SYRINGE 10 ML IV SCH (09:53)
[2019-02-14 17:03] VITALS: BP 142/94
[2019-02-14] MEDS ORDERED: LANTUS SUB-Q SCH (22:00)
[2019-02-19 20:18] LABS: Myeloperoxidase Antibody <1.0 AI (<1.0)
[2019-02-20 11:57] LABS: ANA Screen, IFA Negative (Negative)
== END 2019-02-14 17:22 | disposition home or self-care (01) | DRG 683 ==
LOC: ED 23:56 → 3A 02-13 05:06
PROVIDERS: ADMIT Internal Medicine Geriatric Medicine; ATTEND Internal Medicine
DX: N17.9 Acute kidney failure, unspecified (principal); I12.0 Hypertensive chronic kidney disease with stage 5 chronic kidney disease or end stage renal disease; E10.649 Type 1 diabetes mellitus with hypoglycemia without coma; D63.1 Anemia in chronic kidney disease; N18.5 Chronic kidney disease, stage 5; E10.21 Type 1 diabetes mellitus with diabetic nephropathy; E10.22 Type 1 diabetes mellitus with diabetic chronic kidney disease; N25.81 Secondary hyperparathyroidism of renal origin; Z79.4 Long term (current) use of insulin; Z91.19 Patient's noncompliance with other medical treatment and regimen
CPT/HCPCS: 36415; 80048; 80053; 80061; 81001; 82947; 82962; 83036; 83735; 84100; 85025; 86021; 86038; 99285; G0378; J0360; J1644; J1815; J2405; J7030

== ENCOUNTER 2019-05-15 11:15 | Emergency (ER) | payer MEDICAID ==
--- NOTE | 2019-05-15 11:23 | Event Note ---
ED Screening Note ED Screening Note: co sore throat and blood sugar low gagging in triage pmh DM HTN HPLD CVA CKD- states he needs HD but he'd rater Rx insulin lisinopril calcitrol no drugs etoh no cig This initial assessment/diagnostic orders/clinical plan/treatment(s) is/are subject to change based on patients health status, clinical progression and re- assessment by fellow clinical providers in the ED. Further treatment and workup at subsequent clinical providers discretion. Patient/guardian urged not to elope from the ED as their condition may be serious if not clinically assessed and managed. Initial orders include: blood glucose labs strep sent in triage urinalysis
[2019-05-15 11:36] VITALS: BP 145/96
[2019-05-15 12:09] LABS: Bacteria,Urine 1+ /HPF (Negative); Bilirubin,Urine NEG (Negative); Blood,Urine MOD (Negative); Color,Urine Yellow (Yellow); Urobilinogen,Urine < 2.0 mg/dL (<2.0)
[2019-05-15] MEDS ORDERED: BICILLIN L-A IM ONE (12:13)
[2019-05-15] MEDS ORDERED: TORADOL IM ONE (12:13)
[2019-05-15] MEDS ORDERED: NORCO PO ONE (12:14)
--- NOTE | 2019-05-15 12:39 | Emergency Department Report ---
ED General Adult HPI - General Chief complaint: Hyperglycemia Stated complaint: LOW BLOOD SUGAR Time Seen by Provider: 05/15/19 11:21 Source: patient Mode of arrival: Ambulatory Limitations: No Limitations - History of Present Illness Initial comments: Patient is a 48-year-old asthmatic male with past medical history diabetes who is presenting with sore throat. Patient states he has been able to eat the last 2 days were about blood sugar he does not check her home. Patient states the pain is throat is a 8 out 10 in severity is worse with swallowing. Patient denies nausea vomiting diarrhea fevers chills, cold or congestion. Severity scale (0 -10): 5 - Related Data Home Medications Medication Instructions Recorded Confirmed Last Taken NovoLOG 100 UNITS/ML VIAL units SQ AC PRN 05/19/18 Unknown amLODIPine 10 units SQ DAILY 05/19/18 05/19/18 Unknown Previous Rx's Medication Instructions Recorded Last Taken Type Insulin Glargine [Lantus VIAL] 12 units SUB-Q QHS #30 units 02/14/19 Unknown Rx HYDROcodone/ACETAMINOPHEN 15 ml PO Q6H PRN #150 solution 05/15/19 Unknown Rx [Hydrocodon-Acetamin 7.5-325/15] Allergies Allergy/AdvReac Type Severity Reaction Status Date / Time No Known Allergies Allergy Verified 05/15/19 11:17 ED Review of Systems ROS: Stated complaint: LOW BLOOD SUGAR Other details as noted in HPI Comment: All other systems reviewed and negative ED Past Medical Hx - Past Medical History Hx Hypertension: Yes Hx Heart Attack/AMI: No Hx Congestive Heart Failure: No Hx Diabetes: Yes Hx Deep Vein Thrombosis: Yes Hx Pulmonary Embolism: No Hx Renal Disease: Yes Hx Headaches / Migraines: No Hx Seizures: Yes Hx Asthma: No Hx COPD: No Hx Tuberculosis: No Hx Dementia: No Hx HIV: No - Surgical History Hx Coronary Stent: No Hx Pacemaker: No Hx Internal Defibrillator: No - Social History Smoking Status: Never Smoker Substance Use Type: None - Medications Home Medications: Home Medications Medication Instructions Recorded Confirmed Last Taken Type NovoLOG 100 UNITS/ML VIAL units SQ AC PRN 05/19/18 Unknown History amLODIPine 10 units SQ DAILY 05/19/18 05/19/18 Unknown History Insulin Glargine [Lantus VIAL] 12 units SUB-Q QHS #30 units 02/14/19 Unknown Rx HYDROcodone/ACETAMINOPHEN 15 ml PO Q6H PRN #150 solution 05/15/19 Unknown Rx [Hydrocodon-Acetamin 7.5-325/15] ED Physical Exam - General Limitations: No Limitations General appearance: alert, in no apparent distress - Head Head exam: Present: atraumatic, normocephalic - Eye Eye exam: Present: normal appearance, PERRL, EOMI - ENT ENT exam: Present: mucous membranes moist - Expanded ENT Exam Expanded Throat exam: Positive: tonsillar erythema, tonsillomegaly. Negative: tonsillar exudate - Neck Neck exam: Present: normal inspection, tenderness, lymphadenopathy - Respiratory Respiratory exam: Present: normal lung sounds bilaterally. Absent: respiratory distress - Cardiovascular Cardiovascular Exam: Present: regular rate, normal rhythm. Absent: systolic murmur, diastolic murmur, rubs, gallop - GI/Abdominal GI/Abdominal exam: Present: soft, normal bowel sounds - Rectal Rectal exam: Present: deferred - Extremities Exam Extremities exam: Present: normal inspection - Back Exam Back exam: Present: normal inspection - Neurological Exam Neurological exam: Present: alert, oriented X3 - Psychiatric Psychiatric exam: Present: normal affect, normal mood - Skin Skin exam: Present: warm, dry, intact, normal color. Absent: rash ED Course Vital Signs 05/15/19 11:25 Temperature 98.3 F Pulse Rate 86 Respiratory 16 Rate Blood Pressure 145/96 [Left] O2 Sat by Pulse 97 Oximetry ED Medical Decision Making - Medical Decision Making Patient's glucose slightly elevated secondary likely to infection. Patient be given a shot of Bicillin and will be sent home with medication for symptom relief. Critical care attestation.: If time is entered above; I have spent that time in minutes in the direct care of this critically ill patient, excluding procedure time. ED Disposition Clinical Impression: Pharyngitis Qualifiers: Pharyngitis/tonsillitis etiology: unspecified etiology Qualified Code(s): J02.9 - Acute pharyngitis, unspecified Disposition: - TO HOME OR SELFCARE Is pt being admited?: No Does the pt Need Aspirin: No Condition: Stable Instructions: Pharyngitis (ED) Referrals: MAU ARCE MD [Referring] - 3-5 Days
== END 2019-05-15 13:22 | disposition home or self-care (01) ==
LOC: ED 11:15
DX: J02.9 Acute pharyngitis, unspecified (principal); I10 Essential (primary) hypertension; E11.9 Type 2 diabetes mellitus without complications; Z86.718 Personal history of other venous thrombosis and embolism; Z87.448 Personal history of other diseases of urinary system; Z79.899 Other long term (current) drug therapy
CPT/HCPCS: 81001; 82962; 87116; 87430; 96372; 99283; J0561; J1885

== ENCOUNTER 2019-05-16 00:02 | Emergency (ER) | payer MEDICAID ==
[2019-05-16 00:09] VITALS: BP 140/89
[2019-05-16] MEDS ORDERED: DECADRON IM ONE (01:19)
--- NOTE | 2019-05-16 01:27 | Emergency Department Report ---
ED ENT HPI - General Chief complaint: Dyspnea/Respdistress Stated complaint: THROAT PAIN/DEJAN Time Seen by Provider: 05/16/19 00:36 Source: patient Mode of arrival: Ambulatory Limitations: No Limitations - History of Present Illness Initial comments: Patient is a 48-year-old male who presents to the emergency room with complaints of a sore throat that began 3 days ago. He states it hurts to swallow. He states his throat feels swollen. He denies any fever. He was evaluated in the ED earlier today and diagnosed with pharyngitis. a rapid strep was obtained earlier today and was negative and a throat culture was sent. He was given Toradol, hydrocodone, Bicillin while in the ED earlier today. He was given a prescription for liquid hydrocodone but states he was unable to get it filled due to it being the holiday. He is tolerating secretions and liquid intake. Denies any allergies to medications. - Related Data Home Medications Medication Instructions Recorded Confirmed Last Taken NovoLOG 100 UNITS/ML VIAL units SQ AC PRN 05/19/18 Unknown amLODIPine 10 units SQ DAILY 05/19/18 05/19/18 Unknown Previous Rx's Medication Instructions Recorded Last Taken Type Insulin Glargine [Lantus VIAL] 12 units SUB-Q QHS #30 units 02/14/19 Unknown Rx HYDROcodone/ACETAMINOPHEN 15 ml PO Q6H PRN #150 solution 05/15/19 Unknown Rx [Hydrocodon-Acetamin 7.5-325/15] Nystas/Diphen/Xyl Visc/Mylanta 10 ml MM TID PRN #480 ml 05/16/19 Unknown Rx [Magic Mouthwash] Allergies Allergy/AdvReac Type Severity Reaction Status Date / Time No Known Allergies Allergy Verified 05/15/19 11:17 ED Dental HPI - General Chief complaint: Dyspnea/Respdistress Stated complaint: THROAT PAIN/DEJAN Time Seen by Provider: 05/16/19 00:36 Source: patient Mode of arrival: Ambulatory Limitations: No Limitations - Related Data Home Medications Medication Instructions Recorded Confirmed Last Taken NovoLOG 100 UNITS/ML VIAL units SQ AC PRN 05/19/18 Unknown amLODIPine 10 units SQ DAILY 05/19/18 05/19/18 Unknown Previous Rx's Medication Instructions Recorded Last Taken Type Insulin Glargine [Lantus VIAL] 12 units SUB-Q QHS #30 units 02/14/19 Unknown Rx HYDROcodone/ACETAMINOPHEN 15 ml PO Q6H PRN #150 solution 05/15/19 Unknown Rx [Hydrocodon-Acetamin 7.5-325/15] Nystas/Diphen/Xyl Visc/Mylanta 10 ml MM TID PRN #480 ml 05/16/19 Unknown Rx [Magic Mouthwash] Allergies Allergy/AdvReac Type Severity Reaction Status Date / Time No Known Allergies Allergy Verified 05/15/19 11:17 ED Review of Systems ROS: Stated complaint: THROAT PAIN/DEJNA Other details as noted in HPI Comment: All other systems reviewed and negative ED Past Medical Hx - Past Medical History Previous Medical History?: Yes Hx Hypertension: Yes Hx Heart Attack/AMI: No Hx Congestive Heart Failure: No Hx Diabetes: Yes Hx Deep Vein Thrombosis: Yes Hx Pulmonary Embolism: No Hx Renal Disease: Yes Hx Headaches / Migraines: No Hx Seizures: Yes Hx Asthma: No Hx COPD: No Hx Tuberculosis: No Hx Dementia: No Hx HIV: No - Surgical History Past Surgical History?: No Hx Coronary Stent: No Hx Pacemaker: No Hx Internal Defibrillator: No - Social History Smoking Status: Never Smoker Substance Use Type: None - Medications Home Medications: Home Medications Medication Instructions Recorded Confirmed Last Taken Type NovoLOG 100 UNITS/ML VIAL units SQ AC PRN 05/19/18 Unknown History amLODIPine 10 units SQ DAILY 05/19/18 05/19/18 Unknown History Insulin Glargine [Lantus VIAL] 12 units SUB-Q QHS #30 units 02/14/19 Unknown Rx HYDROcodone/ACETAMINOPHEN 15 ml PO Q6H PRN #150 solution 05/15/19 Unknown Rx [Hydrocodon-Acetamin 7.5-325/15] Nystas/Diphen/Xyl Visc/Mylanta 10 ml MM TID PRN #480 ml 05/16/19 Unknown Rx [Magic Mouthwash] ED Physical Exam - General Limitations: No Limitations General appearance: alert, in no apparent distress - Head Head exam: Present: atraumatic, normocephalic - Eye Eye exam: Present: normal appearance, PERRL - ENT ENT exam: Present: mucous membranes moist, other (posterior oropharynx with erythema and exudates present, no tonsillar hypertrophy or exudates, uvula is midline, no uvular edema) - Respiratory Respiratory exam: Present: normal lung sounds bilaterally. Absent: respiratory distress, wheezes, rales, rhonchi, chest wall tenderness, accessory muscle use, decreased breath sounds, prolonged expiratory - Cardiovascular Cardiovascular Exam: Present: regular rate, normal rhythm, normal heart sounds. Absent: systolic murmur, diastolic murmur, rubs, gallop - Neurological Exam Neurological exam: Present: alert, oriented X3 - Psychiatric Psychiatric exam: Present: normal affect, normal mood - Skin Skin exam: Present: warm, dry, intact ED Course Vital Signs 05/16/19 05/16/19 00:06 02:30 Temperature 97.5 F L Pulse Rate 103 H 92 H Respiratory 18 Rate Blood Pressure 140/89 O2 Sat by Pulse 98 98 Oximetry ED Medical Decision Making - Medical Decision Making Patient is a 48-year-old male who presents to the emergency room with complaints of a sore throat that began 3 days ago. He states it hurts to swallow. He states his throat feels swollen. He denies any fever. He was evaluated in the ED earlier today and diagnosed with pharyngitis. a rapid strep was obtained earlier today and was negative and a throat culture was sent. He was given Toradol, hydrocodone, Bicillin while in the ED earlier today. He was given a prescription for liquid hydrocodone but states he was unable to get it filled due to it being the holiday. He is tolerating secretions and liquid intake. Denies any allergies to medications. initial vitals with mild tachycardia, on repeat improved. on exam: posterior oropharynx with erythema and exudates present, no tonsillar hypertrophy or exudates, uvula is midline, no uvular edema. pt given dexamethasone while in the ED. on reevaluation pt states he was feeling better. Critical care attestation.: If time is entered above; I have spent that time in minutes in the direct care of this critically ill patient, excluding procedure time. ED Disposition Clinical Impression: Pharyngitis Qualifiers: Pharyngitis/tonsillitis etiology: unspecified etiology Qualified Code(s): J02.9 - Acute pharyngitis, unspecified Disposition: TO HOME OR SELFCARE Is pt being admited?: No Does the pt Need Aspirin: No Condition: Stable Instructions: Pharyngitis (ED) Additional Instructions: Please take medication as prescribed. throw away your toothbrush. Do not drink after others or allow others to drink after you. Use warm salt water gargles. Follow up with a primary care doctor in the next 3 days. Return to the emergency room for any new or worsening symptoms. Prescriptions: Nystas/Diphen/Xyl Visc/Mylanta [Magic Mouthwash] 10 ml MM TID PRN #480 ml PRN Reason: Sore Throat Referrals: RITCHIE FRANCOIS MD [Primary Care Provider] - 2-3 Days Time of Disposition: 02:07 Print Language: YAKUT
== END 2019-05-16 02:30 | disposition home or self-care (01) ==
LOC: ED 00:02
DX: J02.9 Acute pharyngitis, unspecified (principal); I10 Essential (primary) hypertension; E11.9 Type 2 diabetes mellitus without complications; Z86.718 Personal history of other venous thrombosis and embolism; Z87.448 Personal history of other diseases of urinary system; Z79.899 Other long term (current) drug therapy
CPT/HCPCS: 96372; 99282; J1100

== ENCOUNTER 2021-08-12 02:36 | Emergency (ER) | payer MEDICAID ==
[2021-08-12 02:55] VITALS: BP 145/91
--- NOTE | 2021-08-12 03:23 | Emergency Department Report ---
ED General Adult HPI - General Chief complaint: Hypoglycemia Stated complaint: LOW BS PUI?: No Time Seen by Provider: 08/12/21 03:18 Source: patient, EMS Mode of arrival: Stretcher Limitations: No Limitations - History of Present Illness Initial comments: Patient is a 50-year-old male who presents emergency room for hyperglycemia. Patient states that he took his insulin but did not eat enough calories. Patient states that he called EMS and they gave him oral intake and the patient's blood sugar is now 200 in the ER. Patient denies pain. Patient denies symptoms. Patient states he felt lethargic and fatigued when his blood sugar was low but those symptoms have resolved. Patient denies chest pain. Patient denies shortness of breath. Patient denies recent travel. Patient denies recent international travel. Patient denies exposure to the novel coronavirus. Patient denies sick contacts. Patient denies fever and chills. Patient denies cough. Patient denies diarrhea. Patient denies coming in contact with anybody with symptoms of the novel coronavirus. Patient states he wants to leave. Patient states he does not want to be evaluated further or have labs done. Severity scale (0 -10): 0 - Related Data Home Medications Medication Instructions Recorded Confirmed Last Taken NovoLOG 100 UNITS/ML VIAL units SQ AC PRN 05/19/18 Unknown amLODIPine 10 units SQ DAILY 05/19/18 05/19/18 Unknown Previous Rx's Medication Instructions Recorded Last Taken Type Insulin Glargine [Lantus VIAL] 12 units SUB-Q QHS #30 units 02/14/19 Unknown Rx HYDROcodone/ACETAMINOPHEN 15 ml PO Q6H PRN #150 solution 05/15/19 Unknown Rx [Hydrocodon-Acetamin 7.5-325/15] Nystas/Diphen/Xyl Visc/Mylanta 10 ml MM TID PRN #480 ml 05/16/19 Unknown Rx [Magic Mouthwash] Allergies Allergy/AdvReac Type Severity Reaction Status Date / Time No Known Allergies Allergy Verified 05/15/19 11:17 ED Review of Systems ROS: Stated complaint: LOW BS Other details as noted in HPI Constitutional: denies: chills, fever Eyes: denies: eye pain, eye discharge, vision change ENT: denies: ear pain, throat pain Respiratory: denies: cough, shortness of breath, wheezing Cardiovascular: denies: chest pain, palpitations Endocrine: no symptoms reported Gastrointestinal: denies: abdominal pain, nausea, diarrhea Genitourinary: denies: urgency, dysuria Musculoskeletal: denies: back pain, joint swelling, arthralgia Skin: denies: rash, lesions Neurological: denies: headache, weakness, paresthesias Psychiatric: denies: anxiety, depression Hematological/Lymphatic: denies: easy bleeding, easy bruising ED Past Medical Hx - Past Medical History Previous Medical History?: Yes Hx Hypertension: Yes Hx Heart Attack/AMI: No Hx Congestive Heart Failure: No Hx Diabetes: Yes Hx Deep Vein Thrombosis: Yes Hx Pulmonary Embolism: No Hx Renal Disease: Yes (ESRD MWF HD) Hx Headaches / Migraines: No Hx Seizures: Yes Hx Asthma: No Hx COPD: No Hx Tuberculosis: No Hx Dementia: No Hx HIV: No Additional medical history: Vascath Right Chest Wall - Surgical History Past Surgical History?: Yes Hx Coronary Stent: No Hx Pacemaker: No Hx Internal Defibrillator: No Additional Surgical History: Dialysis shunt - Family History Family history: no significant - Social History Smoking Status: Never Smoker Substance Use Type: None - Medications Home Medications: Home Medications Medication Instructions Recorded Confirmed Last Taken Type NovoLOG 100 UNITS/ML VIAL units SQ AC PRN 05/19/18 Unknown History amLODIPine 10 units SQ DAILY 05/19/18 05/19/18 Unknown History Insulin Glargine [Lantus VIAL] 12 units SUB-Q QHS #30 units 02/14/19 Unknown Rx HYDROcodone/ACETAMINOPHEN 15 ml PO Q6H PRN #150 solution 05/15/19 Unknown Rx [Hydrocodon-Acetamin 7.5-325/15] Nystas/Diphen/Xyl Visc/Mylanta 10 ml MM TID PRN #480 ml 05/16/19 Unknown Rx [Magic Mouthwash] ED Physical Exam - General Limitations: No Limitations General appearance: alert, in no apparent distress - Head Head exam: Present: atraumatic, normocephalic - Eye Eye exam: Present: normal appearance - ENT ENT exam: Present: mucous membranes moist - Neck Neck exam: Present: normal inspection - Respiratory Respiratory exam: Present: normal lung sounds bilaterally. Absent: respiratory distress - Cardiovascular Cardiovascular Exam: Present: regular rate, normal rhythm. Absent: systolic murmur, diastolic murmur, rubs, gallop - GI/Abdominal GI/Abdominal exam: Present: soft, normal bowel sounds - Rectal Rectal exam: Present: deferred - Extremities Exam Extremities exam: Present: normal inspection - Back Exam Back exam: Present: normal inspection - Neurological Exam Neurological exam: Present: alert, oriented X3 - Psychiatric Psychiatric exam: Present: normal affect, normal mood - Skin Skin exam: Present: warm, dry, intact, normal color. Absent: rash ED Course Vital Signs 08/12/21 08/12/21 08/12/21 02:50 02:55 03:50 Temperature 98.7 F 98.7 F Pulse Rate 89 89 Respiratory 20 20 20 Rate Blood Pressure 145/91 Blood Pressure 145/91 [Left] O2 Sat by Pulse 100 100 98 Oximetry - Reevaluation(s) Reevaluation #1: Patient states he does not want any labs done. Patient does states he does not want any further evaluation past the initial exam. Patient states he needs to go. Patient states he wants to leave. I discussed the risk with patient. Patient voiced understanding of the risk. Patient signed AMA form. Patient is of sound mind and body. Patient's alert and oriented x4. Patient is leaving AGAINST MEDICAL ADVICE, the patient will be given a formal discharge. Patient given discharge instructions. Patient voiced understanding of discharge instructions. 08/12/21 03:20 ED Medical Decision Making - Medical Decision Making Patient is a 50-year-old male who presents emergency room for hypoglycemia. Patient has a history of end-stage renal disease, insulin-dependent diabetes. Patient states he took his insulin as he was told. Patient states he did not take an adequate amount of calories for the amount of insulin injected. Patient states his blood sugar dropped. Patient states his hypoglycemia woke him up. Patient states he then called EMS. Patient was given juice in route and patient's blood sugar upon arrival to the ER was 200. Patient during this evaluation stated he does not want any further evaluation past initial exam. Patient refuses labs. Patient states he needs to go. I discussed the risk of leaving the hospital prior to a full disposition and full evaluation can be done and the patient voiced understanding of the risk. Patient signed AMA form. Patient left the hospital AGAINST MEDICAL ADVICE. Even though the patient is leaving the hospital AGAINST MEDICAL ADVICE, a formal discharge will be given to the patient. - Differential Diagnosis Hypoglycemia, inadequate caloric intake. Critical care attestation.: If time is entered above; I have spent that time in minutes in the direct care of this critically ill patient, excluding procedure time. ED Disposition Clinical Impression: Hypoglycemia due to insulin, Hypoglycemia Disposition: LEFT AGAINST MEDICAL ADVICE Is pt being admited?: No Does the pt Need Aspirin: No Condition: Stable Instructions: Hypoglycemia Additional Instructions: Patient to follow-up with primary care in 2 to 3 days. Patient to follow-up with nephrology and endocrinology in 2 to 3 days. Patient to rest. Patient to increase water. Patient to be adequate caloric intake for meds. Patient continue all medications. Patient to return to the ER if condition worsens, changes or new symptoms arise. Referrals: PRIMARY CARE, [Primary Care Provider] - 3-5 Days Forms: AMA Form Time of Disposition: 03:23
== END 2021-08-12 03:25 | disposition left against medical advice (07) ==
LOC: ED 02:36
DX: E11.649 Type 2 diabetes mellitus with hypoglycemia without coma (principal); I12.0 Hypertensive chronic kidney disease with stage 5 chronic kidney disease or end stage renal disease; E11.22 Type 2 diabetes mellitus with diabetic chronic kidney disease; N18.6 End stage renal disease; Z86.718 Personal history of other venous thrombosis and embolism
CPT/HCPCS: 82962; 99283

== ENCOUNTER 2021-09-13 08:13 | Emergency (ER) | payer MEDICAID ==
[2021-09-13 09:13] LABS: Basophils # (Auto) 0.1 K/mm3 (0.0-0.1); Basophils % (Auto) 1.1 % (0.0-1.8); Eosinophils # (Auto) 0.2 K/mm3 (0.0-0.4); Hematocrit 42.1 % (35.5-45.6); Hemoglobin 13.6 gm/dl (11.8-15.2); Lymphocytes # (Auto) 1.9 K/mm3 (1.2-5.4); Mean Corpuscular HGB Conc 32 % (32-34); Mean Corpuscular Volume 94 fl (84-94); Monocytes # (Auto) 0.5 K/mm3 (0.0-0.8); Monocytes % (Auto) 6.1 % (0.0-7.3); Platelet Count 158 K/mm3 (140-440); Red Blood Count 4.49 M/mm3 (3.65-5.03); Red Cell Distribution Width 16.1 % (13.2-15.2)
[2021-09-13 09:29] LABS: Albumin 4.2 g/dL (3.9-5); Calcium 10.1 mg/dL (8.4-10.2)
--- NOTE | 2021-09-13 09:29 | Emergency Department Report ---
HPI - General Chief Complaint: Hyperglycemia Time Seen by Provider: 09/13/21 08:32 - HPI HPI: 50-year-old -[place] Citizen male presents to the emergency department, sent in by vascular surgery, with complaint of elevated and uncontrolled blood sugar. Patient does have a history of diabetes and said that his blood sugar was low last night so he went and ate a small amount of some type of cake. The patient was in preop today to have a right upper extremity fistula placed and his right chest dialysis catheter removed when "they checked my blood sugar and said that it was too high." The patient has a history of end-stage renal disease on hemodialysis on Sunday/Sunday/Sunday. He follows with Dr. Rice and did get dialysis yesterday. Currently the patient denies any physical complaints and just is anxious to have the procedure done so the right chest catheter can be removed. ED Past Medical Hx - Past Medical History Hx Hypertension: Yes Hx Heart Attack/AMI: No Hx Congestive Heart Failure: No Hx Diabetes: Yes Hx Deep Vein Thrombosis: Yes Hx Pulmonary Embolism: No Hx Renal Disease: Yes (ESRD MWF HD) Hx Headaches / Migraines: No Hx Seizures: Yes Hx Asthma: No Hx COPD: No Hx Tuberculosis: No Hx Dementia: No Hx HIV: No Additional medical history: Vascath Right Chest Wall - Surgical History Hx Coronary Stent: No Hx Pacemaker: No Hx Internal Defibrillator: No Additional Surgical History: Dialysis shunt - Social History Smoking Status: Never Smoker Substance Use Type: None - Medications Home Medications: Home Medications Medication Instructions Recorded Confirmed Last Taken Type NovoLOG 100 UNITS/ML VIAL units SQ AC PRN 05/19/18 Unknown History amLODIPine 10 units SQ DAILY 05/19/18 05/19/18 Unknown History Insulin Glargine [Lantus VIAL] 12 units SUB-Q QHS #30 units 02/14/19 Unknown Rx HYDROcodone/ACETAMINOPHEN 15 ml PO Q6H PRN #150 solution 05/15/19 Unknown Rx [Hydrocodon-Acetamin 7.5-325/15] Nystas/Diphen/Xyl Visc/Mylanta 10 ml MM TID PRN #480 ml 05/16/19 Unknown Rx [Magic Mouthwash] ED Review of Systems ROS: Stated complaint: BLOOD SUGAR IS OVER 700 Other details as noted in HPI Comment: All other systems reviewed and negative Constitutional: denies: chills, fever Eyes: denies: eye pain, vision change ENT: denies: ear pain, throat pain Respiratory: denies: cough, shortness of breath Cardiovascular: denies: chest pain, palpitations Gastrointestinal: denies: abdominal pain, vomiting Genitourinary: denies: dysuria, discharge Musculoskeletal: denies: back pain, arthralgia Skin: denies: rash, lesions Neurological: denies: headache, weakness Physical Exam - Physical Exam Vital Signs: Vital Signs 09/13/21 09/13/21 08:22 08:24 Temperature 98.1 F Pulse Rate 70 Respiratory 18 Rate Blood Pressure 145/95 O2 Sat by Pulse 100 Oximetry Physical Exam: GENERAL: The patient is well-developed well-nourished. HENT: Normocephalic. Atraumatic. Patient has moist mucous membranes. EYES: Extraocular motions are intact. NECK: Supple. Trachea is midline. CHEST/LUNGS: Clear to auscultation. There is no respiratory distress noted. Right-sided chest wall vascular catheter. HEART/CARDIOVASCULAR: Regular. There is no tachycardia. There is no murmur. ABDOMEN: Abdomen is soft, nontender. Patient has normal bowel sounds. There is no abdominal distention. SKIN: Skin is warm and dry. NEURO: The patient is awake, alert, and oriented. The patient is cooperative. The patient has no focal neurologic deficits. Normal speech. MUSCULOSKELETAL: There is no tenderness or deformity. There is no limitation ra nge of motion. ED Course Vital Signs 09/13/21 09/13/21 08:22 08:24 Temperature 98.1 F Pulse Rate 70 Respiratory 18 Rate Blood Pressure 145/95 O2 Sat by Pulse 100 Oximetry ED Medical Decision Making - Lab Data Result diagrams: 09/13/21 08:45 09/13/21 08:45 Lab Results 09/13/21 09/13/21 09/13/21 Range/Units 08:23 08:45 08:45 WBC 8.6 (4.5-11.0) K/mm3 RBC 4.49 (3.65-5.03) M/mm3 Hgb 13.6 (11.8-15.2) gm/dl Hct 42.1 (35.5-45.6) % MCV 94 (84-94) fl MCH 30 (28-32) pg MCHC 32 (32-34) % RDW 16.1 H (13.2-15.2) % Plt Count 158 (140-440) K/mm3 Lymph % (Auto) 22.0 (13.4-35.0) % [place] % (Auto) 6.1 (0.0-7.3) % Eos % (Auto) 2.0 (0.0-4.3) % Baso % (Auto) 1.1 (0.0-1.8) % Lymph # (Auto) 1.9 (1.2-5.4) K/mm3 [place] # (Auto) 0.5 (0.0-0.8) K/mm3 Eos # (Auto) 0.2 (0.0-0.4) K/mm3 Baso # (Auto) 0.1 (0.0-0.1) K/mm3 Seg Neutrophils % 68.8 (40.0-70.0) % Seg Neutrophils # 5.9 (1.8-7.7) K/mm3 VBG pH (7.320-7.420) Sodium 130 L (137-145) mmol/L Potassium 5.3 H (3.6-5.0) mmol/L Chloride 91.7 L (98-107) mmol/L Carbon Dioxide 28 (22-30) mmol/L Anion Gap 16 mmol/L BUN 40 H (9-20) mg/dL Creatinine 6.8 H (0.8-1.3) mg/dL Estimated GFR 10 ml/min BUN/Creatinine Ratio 6 % Glucose 745 H* (75-100) mg/dL POC Glucose > 600 H (70-105) mg/dL Ketones Quantitative (Negative) Osmolality Mosm/kg Calcium 10.1 (8.4-10.2) mg/dL Total Bilirubin 0.40 (0.1-1.2) mg/dL AST 25 (5-40) units/L ALT 21 (7-56) units/L Alkaline Phosphatase 161 H (35-129) units/L Total Protein 7.8 (6.3-8.2) g/dL Albumin 4.2 (3.9-5) g/dL Albumin/Globulin Ratio 1.2 % Urine Color (Yellow) Urine Turbidity (Clear) Urine pH (5.0-7.0) Ur Specific [place] (1.003-1.030) Urine Protein (Negative) mg/dL Urine Glucose (UA) (Negative) mg/dL Urine Ketones (Negative) mg/dL Urine Blood (Negative) Urine Nitrite (Negative) Urine Bilirubin (Negative) Urine Urobilinogen (<2.0) mg/dL Ur Leukocyte Esterase (Negative) Urine WBC (Auto) (0.0-6.0) /HPF Urine RBC (Auto) (0.0-6.0) /HPF 09/13/21 09/13/21 09/13/21 Range/Units 08:45 08:45 08:45 WBC (4.5-11.0) K/mm3 RBC (3.65-5.03) M/mm3 Hgb (11.8-15.2) gm/dl Hct (35.5-45.6) % MCV (84-94) fl MCH (28-32) pg MCHC (32-34) % RDW (13.2-15.2) % Plt Count (140-440) K/mm3 Lymph % (Auto) (13.4-35.0) % [place] % (Auto) (0.0-7.3) % Eos % (Auto) (0.0-4.3) % Baso % (Auto) (0.0-1.8) % Lymph # (Auto) (1.2-5.4) K/mm3 [place] # (Auto) (0.0-0.8) K/mm3 Eos # (Auto) (0.0-0.4) K/mm3 Baso # (Auto) (0.0-0.1) K/mm3 Seg Neutrophils % (40.0-70.0) % Seg Neutrophils # (1.8-7.7) K/mm3 VBG pH 7.336 (7.320-7.420) Sodium (137-145) mmol/L Potassium (3.6-5.0) mmol/L Chloride (98-107) mmol/L Carbon Dioxide (22-30) mmol/L Anion Gap mmol/L BUN (9-20) mg/dL Creatinine (0.8-1.3) mg/dL Estimated GFR ml/min BUN/Creatinine Ratio % Glucose (75-100) mg/dL POC Glucose (70-105) mg/dL Ketones Quantitative Small (Negative) Osmolality 328 Mosm/kg Calcium (8.4-10.2) mg/dL Total Bilirubin (0.1-1.2) mg/dL AST (5-40) units/L ALT (7-56) units/L Alkaline Phosphatase (35-129) units/L Total Protein (6.3-8.2) g/dL Albumin (3.9-5) g/dL Albumin/Globulin Ratio % Urine Color (Yellow) Urine Turbidity (Clear) Urine pH (5.0-7.0) Ur Specific [place] (1.003-1.030) Urine Protein (Negative) mg/dL Urine Glucose (UA) (Negative) mg/dL Urine Ketones (Negative) mg/dL Urine Blood (Negative) Urine Nitrite (Negative) Urine Bilirubin (Negative) Urine Urobilinogen (<2.0) mg/dL Ur Leukocyte Esterase (Negative) Urine WBC (Auto) (0.0-6.0) /HPF Urine RBC (Auto) (0.0-6.0) /HPF 09/13/21 09/13/21 09/13/21 Range/Units 11:37 13:01 Unknown WBC (4.5-11.0) K/mm3 RBC (3.65-5.03) M/mm3 Hgb (11.8-15.2) gm/dl Hct (35.5-45.6) % MCV (84-94) fl MCH (28-32) pg MCHC (32-34) % RDW (13.2-15.2) % Plt Count (140-440) K/mm3 Lymph % (Auto) (13.4-35.0) % [place] % (Auto) (0.0-7.3) % Eos % (Auto) (0.0-4.3) % Baso % (Auto) (0.0-1.8) % Lymph # (Auto) (1.2-5.4) K/mm3 [place] # (Auto) (0.0-0.8) K/mm3 Eos # (Auto) (0.0-0.4) K/mm3 Baso # (Auto) (0.0-0.1) K/mm3 Seg Neutrophils % (40.0-70.0) % Seg Neutrophils # (1.8-7.7) K/mm3 VBG pH (7.320-7.420) Sodium (137-145) mmol/L Potassium (3.6-5.0) mmol/L Chloride (98-107) mmol/L Carbon Dioxide (22-30) mmol/L Anion Gap mmol/L BUN (9-20) mg/dL Creatinine (0.8-1.3) mg/dL Estimated GFR ml/min BUN/Creatinine Ratio % Glucose (75-100) mg/dL POC Glucose 450 H 163 H (70-105) mg/dL Ketones Quantitative (Negative) Osmolality Mosm/kg Calcium (8.4-10.2) mg/dL Total Bilirubin (0.1-1.2) mg/dL AST (5-40) units/L ALT (7-56) units/L Alkaline Phosphatase (35-129) units/L Total Protein (6.3-8.2) g/dL Albumin (3.9-5) g/dL Albumin/Globulin Ratio % Urine Color Straw (Yellow) Urine Turbidity Clear (Clear) Urine pH 7.0 (5.0-7.0) Ur Specific [place] 1.014 (1.003-1.030) Urine Protein 30 mg/dl (Negative) mg/dL Urine Glucose (UA) >=500 (Negative) mg/dL Urine Ketones Neg (Negative) mg/dL Urine Blood Neg (Negative) Urine Nitrite Neg (Negative) Urine Bilirubin Neg (Negative) Urine Urobilinogen < 2.0 (<2.0) mg/dL Ur Leukocyte Esterase Neg (Negative) Urine WBC (Auto) < 1.0 (0.0-6.0) /HPF Urine RBC (Auto) 1.0 (0.0-6.0) /HPF - Medical Decision Making This patient presented to the emergency department after he was found to have a critically high blood sugar prior to having a fistula formation done. The patient does have significant hyperglycemia with a serum blood sugar of about 750. He does not appear to be in diabetic ketoacidosis as there is no venous acidosis or elevated anion gap. Bicarb is 28. Patient was given 1 L of IV fluid and 2 different doses of IV insulin and his blood sugar eventually came down to about 160 on Accu-Chek. Vital signs reassuring throughout his ED course including being afebrile. I briefly spoke with vascular surgery and they say that the patient can be discharged home, as they are unable to do the fistula formation today, and they will contact the patient about rescheduling this procedure. The patient has also been instructed to follow-up with his primary care physician, continue with his normal dialysis regiment, but return to the emergency department with any worsening of his symptoms or with any acute distress. Critical Care Time: No Critical care attestation.: If time is entered above; I have spent that time in minutes in the direct care of this critically ill patient, excluding procedure time. ED Disposition Clinical Impression: Hyperglycemia, ESRD on hemodialysis Uncontrolled diabetes mellitus Qualifiers: Diabetes mellitus type: type 1 Glycemic state: with hyperglycemia Qualified Code(s): E10.65 - Type 1 diabetes mellitus with hyperglycemia Hypertension Qualifiers: Hypertension type: primary hypertension Qualified Code(s): I10 - Essential (primary) hypertension Disposition: HOME / SELF CARE / HOMELESS Is pt being admited?: No Condition: Stable Instructions: Hyperglycemia, Blood Glucose Monitoring, Adult, Hypertension, Adult, End-Stage Kidney Disease, Diabetes Mellitus Type 2 in Adults (ED), Hypertension (ED) Additional Instructions: Continue with your normal dialysis schedule. Please contact [facility] vascular [place] about rescheduling the procedure for your fistula formation. Try to stay away from foods that are high in sugar, carbohydrates, starches. Keep a blood sugar log. Return to the emergency department with any worsening of your symptoms, new or concerning symptoms not addressed during this current emergency department visit, or with any acute distress. Referrals: JEFFREY WAGNER MD [Primary Care Provider] - 3-5 Days Time of Disposition: 14:35
[2021-09-13] MEDS ORDERED: SODIUM CHLORIDE 0.9% 1000 ML 1,000 ML IV ONE (09:30)
[2021-09-13] MEDS ORDERED: INSULIN REGULAR, HUMAN 100 UNITS/1 ML IV ONE ×2 (09:51→11:45)
[2021-09-13 09:52] VITALS: BP 156/107
[2021-09-13 10:20] LABS: Bilirubin,Urine NEG (Negative); Blood,Urine NEG (Negative); Color,Urine Straw (Yellow); Urobilinogen,Urine < 2.0 mg/dL (<2.0); WBC,Urine < 1.0 /HPF (0.0-6.0)
== END 2021-09-13 15:15 | disposition home or self-care (01) ==
LOC: ED 08:13
DX: E11.65 Type 2 diabetes mellitus with hyperglycemia (principal); E11.22 Type 2 diabetes mellitus with diabetic chronic kidney disease; I12.0 Hypertensive chronic kidney disease with stage 5 chronic kidney disease or end stage renal disease; N18.6 End stage renal disease
CPT/HCPCS: 36415; 80053; 81001; 82010; 82805; 82962; 83930; 85025; 96361; 96374; 96376; 99283; J7030; J1815